=== PATIENT | female | born 1980 | race African-American/Black ===

== ENCOUNTER 2022-11-01 10:05 | Emergency (ER) | payer MEDICAID, SELFPAY ==
[2022-11-01] VITALS (21 sets, daily range): BP systolic 127–142; BP diastolic 57–86; PULSE 72–103; RESP 20; TEMP 37.2; O2SAT 95–99; BMI 33.9
--- NOTE | 2022-11-01 11:01 | CRLHL7_ITS ---
For Patients: As a result of the Century Cures Act, medical imaging exams and procedure reports are released immediately into your electronic medical record. You may view this report before your referring provider. If you have questions, please contact your health care provider. indication: Shortness of breath Comparison: None available. Technique: Single AP view chest Findings: There is hyperinflation and chronic interstitial change. There is no focal consolidation, effusion, or pneumothorax. The cardiomediastinal silhouette is within normal limits. The bony thorax is grossly intact. Impression: Mild central bronchial thickening without dense consolidation. Dictated by Ruddy Perez MD @ 11/01/2022 12:29:32 PM (Electronically Signed)
--- NOTE | 2022-11-01 11:03 | ED.GENADULT ---
HPI - General Adult General Time Seen by Provider: 11:03 Date Seen: 11/01/22 Chief complaint: Shortness of Breath/Dyspnea Stated complaint: Shortness of breath, brain fog Time Seen by Provider: 11/01/22 10:28 Source: patient Mode of arrival: ambulatory Limitations: no limitations History of Present Illness HPI narrative: Patient is a very pleasant 42-year-old black female who lives in [place], she has insulin-dependent diabetes type 2, she also has phentermine for weight loss. She works out quite regularly. Over the last year sometimes with stress she will notice some discomfort in her chest shortness of breath. She woke up with this this morning and had shortness of breath. 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 She sees Dr. Staples there is a positive family history of heart disease. She reported today that she felt short of breath a little bit of tingling in her left anterior chest and little bit of tingling in her left shoulder, no jaw or mouth pain or neck pain. No leg swelling or edema. No neurologic complaints, no headache, she does not really feel like she has a viral type illness, is also not certain if she is or not. But doubts that Related Data Home Medications Medication Instructions Recorded Confirmed phentermine 37.5 mg capsule 37.5 mg PO QDAY 05/26/22 Previous Rx's Medication Instructions Recorded phentermine 37.5 mg capsule 37.5 mg PO QDAY #30 caps 05/26/22 insulin glargine 100 unit/mL (3 14 unit (0.14 mL) subcut QPM #15 mL 08/15/22 mL) subcutaneous pen (Lantus Solostar U-100 Insulin) Allergies Allergy/AdvReac Type Severity Reaction Status Date / Time No Known Allergies Allergy Unknown Verified 11/01/22 10:19 Review of Systems Status of ROS: Reports: 10 or more systems reviewed and unremarkable except as noted in History and below [facility] Medical History History of gestational hypertension Obesity Surgical History Status post delivery Status post cholecystectomy Social History Smoking Status: Former smoker Do you use any of these nicotine containing products: None Second hand tobacco smoke exposure: No How often do you have a drink containing alcohol: 2-3 times a week How many standard drinks containing alcohol do you have on a typical day: 1 or 2 AUDIT-C Alcohol total score: 3 Non-prescribed substance use: marijuana (any form) Exam Narrative: Exam Narrative: Objective: Vital signs unremarkable, O2 sat excellent HEENT is unremarkable no facial asymmetry neck is supple chest is clear chest heart rhythm regular heart murmur there is mild palpable left chest tenderness in fact the patient notice ?where you put her stethoscope and still little tender. ? Abdomen benign soft extremities without edema Neurologic nonfocal Skin periphery warm and dry Pulses regular Const: Vital Signs, click to edit/add: Vital Signs - 24 hr 11/01/22 10:19 11/01/22 10:58 11/01/22 11:00 Temperature 98.9 F Pulse Rate 72 91 Pulse Rate [Pulse Oximeter] 81 Respiratory Rate 20 Blood Pressure Blood Pressure [Le ft Upper Arm] 141/66 H Pulse Oximetry 96 99 97 Oxygen Delivery Me thod Room Air 11/01/22 11:09 11/01/22 11:15 11/01/22 11:30 Temperature Pulse Rate 93 76 80 Pulse Rate [Pulse Oximeter] Respiratory Rate Blood Pressure 139/68 Blood Pressure [Le ft Upper Arm] Pulse Oximetry 97 99 98 Oxygen Delivery Me thod 11/01/22 11:32 11/01/22 11:49 11/01/22 12:00 Temperature Pulse Rate 80 84 75 Pulse Rate [Pulse Oximeter] Respiratory Rate Blood Pressure 136/86 Blood Pressure [Le ft Upper Arm] Pulse Oximetry 97 97 97 Oxygen Delivery Me thod 11/01/22 12:01 11/01/22 12:15 11/01/22 12:30 Temperature Pulse Rate 74 75 90 Pulse Rate [Pulse Oximeter] Respiratory Rate Blood Pressure 141/62 H Blood Pressure [Le ft Upper Arm] Pulse Oximetry 97 96 97 Oxygen Delivery Me thod 11/01/22 12:32 11/01/22 12:45 11/01/22 13:00 Temperature Pulse Rate 82 91 103 H Pulse Rate [Pulse Oximeter] Respiratory Rate Blood Pressure 127/57 L Blood Pressure [Le ft Upper Arm] Pulse Oximetry 98 96 96 Oxygen Delivery Me thod 11/01/22 13:01 11/01/22 13:02 11/01/22 13:15 Temperature Pulse Rate 92 95 96 Pulse Rate [Pulse Oximeter] Respiratory Rate Blood Pressure 142/64 H Blood Pressure [Le ft Upper Arm] Pulse Oximetry 96 96 95 Oxygen Delivery Me thod 11/01/22 13:30 11/01/22 13:32 11/01/22 13:45 Temperature Pulse Rate 99 94 87 Pulse Rate [Pulse Oximeter] Respiratory Rate Blood Pressure 135/70 Blood Pressure [Le ft Upper Arm] Pulse Oximetry 96 96 98 Oxygen Delivery Me thod Course Vital Signs Vital signs: Initial Vital Signs Temperature 98.9 F 11/01/22 10:19 Temperature Source Temporal Artery Scan 11/01/22 10:19 Pulse Rate 81 11/01/22 10:19 Pulse Rhythm 11/01/22 10:19 Respiratory Rate 20 11/01/22 10:19 Blood Pressure 141/66 H 11/01/22 10:19 Blood Pressure Mean 91 11/01/22 10:19 Blood Pressure Position Sitting 11/01/22 10:19 Pulse Oximetry 96 11/01/22 10:19 Oxygen Delivery Method 11/01/22 10:19 Vital Signs Temperature 98.9 F 11/01/22 10:19 Pulse Rate 81 11/01/22 10:19 Respiratory Rate 20 11/01/22 10:19 Blood Pressure 141/66 H 11/01/22 10:19 Pulse Oximetry 96 11/01/22 10:19 Oxygen Delivery Method 11/01/22 10:19 Temperature 98.9 F 11/01/22 10:19 Pulse Rate 87 11/01/22 13:45 Respiratory Rate 20 11/01/22 10:19 Blood Pressure 135/70 11/01/22 13:32 Pulse Oximetry 98 11/01/22 13:45 Oxygen Delivery Method 11/01/22 10:19 Medical Decision Making MDM Narrative Medical decision making narrative: The patient is a insulin-dependent diabetic who presents with some shortness of breath. May be anxiety related, but need to rule out acute coronary syndrome, PE, pneumonia, COVID/influenza/RSV. Patient will get a serial troponins, EKG, chest x-ray, D-dimer, laboratory studies. Will give her aspirin. She is not having chest pain or shortness of breath now. Her O2 sat is 96% on room air EKG by my read shows normal sinus rhythm limited R-wave progression anteriorly but no acute ST T wave changes. Disposition pending findings on labs above. she was comfortable the assessment and plan Addendum: Patient's chest x-ray by my review looks negative some bronchial thickening but no acute infiltrate. CRP is less than 0.5 initial D-dimer is negative, initial troponin is negative. White count is 7440 hemoglobin is 13.7. ER profile is unremarkable in the elevated sugar at 1:30 a.m., liver function test normal. Negative for influenza/COVID/RSV. Repeat 90 minute troponin is pending. Repeat EKG shows similar EKG findings with some artifact present. Patient has no further symptoms. At this point if her 2nd troponin is negative think we can lower to be discharged home light activity, she has appointment in [address] Staples and I would recommend discussion of whether a stress echocardiogram would be appropriate or cut a cardiology consultation. Would recommend an aspirin daily adult strength. Light activity as mention any recurrent symptoms or problems return to the ED. the patient was comfortable this will follow up as directed Lab Data Labs: Lab Results 11/01/22 11/01/22 11/01/22 Range/Units 10:28 11:20 11:20 WBC (4.50-11.00) K/uL RBC (4.00-5.20) m/uL Hgb (12.0-16.0) gm/dL Hct (33.0-51.0) % MCV (80-100) fL MCH (26-34) pg MCHC (32-36) gm/dL RDW Coeff of Kendy (11.5-15.5) % Plt Count (140-440) K/uL Neut % (Auto) (42.0-72.0) % Lymph % (Auto) (20-44) % Erath % (Auto) (0.0-11.0) % Eos % (Auto) (0.0-7.0) % Baso % (Auto) (0.0-3.0) % Neut # (Auto) (1.7-7.0) K/uL Lymph # (Auto) (0.90-2.90) K/uL Erath # (Auto) (0.00-0.90) K/UL Eos # (Auto) (0.00-0.50) K/uL Baso # (Auto) (0.00-0.30) K/uL Abs Immat Gran (auto) (0.00-0.30) K/uL Imm/Tot Granulo (auto) % Diff Slide Review (Acceptable) D-Dimer Quant (PE/DVT) < 0.27 (0.00-0.50) ug/ml Sodium 140 (135-149) mmol/L Potassium 4.2 (3.6-5.1) mmol/L Chloride 106 (96-114) mmol/L Carbon Dioxide 25 (20-32) mmol/L BUN 9 (5-24) mg/dL Creatinine 0.5 (0.5-1.5) mg/dL Estimated Creat Clear 135.81 Estimated GFR 119 ml/min Glucose 130 H (60-115) mg/dL Calcium 9.1 (8.4-10.6) mg/dL Total Bilirubin 0.8 (0.1-1.5) mg/dL Direct Bilirubin 0.1 (0.0-0.5) mg/dL AST 26 (12-35) U/L ALT 26 (4-35) U/L Alkaline Phosphatase 65 (40-150) U/L Troponin I (0.01-0.04) ng/mL C-Reactive Protein < 0.5 L (0.5-1.0) mg/dL NT-Pro-B Natriuret Pep 50 (0-125) PG/mL Total Protein 7.2 (6.0-8.3) g/dL Albumin 4.6 (3.3-5.0) g/dL HCG, Qual (Negative) SARS-CoV-2 (PCR) Negative SARS-CoV-2 (Negative) Influenza Type A (PCR) Negative PCR FLU A (Negative) Influenza Type B (PCR) Negative PCR FLU B (Negative) RSV (PCR) Negative PCR RSV (Negative) 11/01/22 11/01/22 11/01/22 Range/Units 11:20 11:20 11:35 WBC 7.44 (4.50-11.00) K/uL RBC 4.25 (4.00-5.20) m/uL Hgb 13.7 (12.0-16.0) gm/dL Hct 40.0 (33.0-51.0) % MCV 94 (80-100) fL MCH 32 (26-34) pg MCHC 34 (32-36) gm/dL RDW Coeff of Kendy 12.5 (11.5-15.5) % Plt Count 197 (140-440) K/uL Neut % (Auto) 52.5 (42.0-72.0) % Lymph % (Auto) 38.4 (20-44) % Erath % (Auto) 7.0 (0.0-11.0) % Eos % (Auto) 1.3 (0.0-7.0) % Baso % (Auto) 0.3 (0.0-3.0) % Neut # (Auto) 3.90 (1.7-7.0) K/uL Lymph # (Auto) 2.86 (0.90-2.90) K/uL Erath # (Auto) 0.50 (0.00-0.90) K/UL Eos # (Auto) 0.10 (0.00-0.50) K/uL Baso # (Auto) 0.02 (0.00-0.30) K/uL Abs Immat Gran (auto) 0.04 (0.00-0.30) K/uL Imm/Tot Granulo (auto) 0.5 % Diff Slide Review Acceptable Review (Acceptable) D-Dimer Quant (PE/DVT) (0.00-0.50) ug/ml Sodium (135-149) mmol/L Potassium (3.6-5.1) mmol/L Chloride (96-114) mmol/L Carbon Dioxide (20-32) mmol/L BUN (5-24) mg/dL Creatinine (0.5-1.5) mg/dL Estimated Creat Clear Estimated GFR ml/min Glucose (60-115) mg/dL Calcium (8.4-10.6) mg/dL Total Bilirubin (0.1-1.5) mg/dL Direct Bilirubin (0.0-0.5) mg/dL AST (12-35) U/L ALT (4-35) U/L Alkaline Phosphatase (40-150) U/L Troponin I < 0.01 L (0.01-0.04) ng/mL C-Reactive Protein (0.5-1.0) mg/dL NT-Pro-B Natriuret Pep (0-125) PG/mL Total Protein (6.0-8.3) g/dL Albumin (3.3-5.0) g/dL HCG, Qual Negative (Negative) SARS-CoV-2 (PCR) (Negative) Influenza Type A (PCR) (Negative) Influenza Type B (PCR) (Negative) RSV (PCR) (Negative) 11/01/22 Range/Units 12:58 WBC (4.50-11.00) K/uL RBC (4.00-5.20) m/uL Hgb (12.0-16.0) gm/dL Hct (33.0-51.0) % MCV (80-100) fL MCH (26-34) pg MCHC (32-36) gm/dL RDW Coeff of Kendy (11.5-15.5) % Plt Count (140-440) K/uL Neut % (Auto) (42.0-72.0) % Lymph % (Auto) (20-44) % Erath % (Auto) (0.0-11.0) % Eos % (Auto) (0.0-7.0) % Baso % (Auto) (0.0-3.0) % Neut # (Auto) (1.7-7.0) K/uL Lymph # (Auto) (0.90-2.90) K/uL Erath # (Auto) (0.00-0.90) K/UL Eos # (Auto) (0.00-0.50) K/uL Baso # (Auto) (0.00-0.30) K/uL Abs Immat Gran (auto) (0.00-0.30) K/uL Imm/Tot Granulo (auto) % Diff Slide Review (Acceptable) D-Dimer Quant (PE/DVT) (0.00-0.50) ug/ml Sodium (135-149) mmol/L Potassium (3.6-5.1) mmol/L Chloride (96-114) mmol/L Carbon Dioxide (20-32) mmol/L BUN (5-24) mg/dL Creatinine (0.5-1.5) mg/dL Estimated Creat Clear Estimated GFR ml/min Glucose (60-115) mg/dL Calcium (8.4-10.6) mg/dL Total Bilirubin (0.1-1.5) mg/dL Direct Bilirubin (0.0-0.5) mg/dL AST (12-35) U/L ALT (4-35) U/L Alkaline Phosphatase (40-150) U/L Troponin I < 0.01 L (0.01-0.04) ng/mL C-Reactive Protein (0.5-1.0) mg/dL NT-Pro-B Natriuret Pep (0-125) PG/mL Total Protein (6.0-8.3) g/dL Albumin (3.3-5.0) g/dL HCG, Qual (Negative) SARS-CoV-2 (PCR) (Negative) Influenza Type A (PCR) (Negative) Influenza Type B (PCR) (Negative) RSV (PCR) (Negative) Discharge Plan Discharge Clinical Impression: Acute chest wall pain, Shortness of breath, Stress Patient Disposition: Home w/ Parent or Adult Condition: Improved Additional Instructions: Rest, light activity, would hold her phentermine and discussed with Dr. Staples on Sunday. Follow up with Dr. Staples on Sunday. Aspirin 325 mg daily adult strength. Discussed further cardiology workup such as a stress echocardiogram on Sunday at a follow-up appointment. Stressed importance of light activity, stress reduction, aspirin daily. Patient was in agreement and will follow up as directed. Continue to monitor her sugars. If she has trouble before her appointment on Sunday can return to the ED at any time. Prescriptions: No Action phentermine 37.5 mg capsule 37.5 mg PO QDAY Rx Instructions: must administer 30 minutes before or 1-2 hours after breakfast phentermine 37.5 mg capsule 37.5 mg PO QDAY Qty: 30 2RF Rx Instructions: must administer 30 minutes before or 1-2 hours after breakfast insulin glargine [Lantus Solostar U-100 Insulin] 100 unit/mL (3 mL) insulin pen 14 unit subcut QPM Qty: 15 10RF Follow Up/Referrals: Nico Bird MD [Primary Care Provider] - Stand Alone Forms: [employer] Info Instructions
[2022-11-01] MEDS: ASPIRIN 81 MG TAB.CHEW 324 MG PO (11:07)
[2022-11-01 11:41] LABS: Basophils Absolute Auto 0.02 K/uL (0.00-0.30); Basophils Percent Auto 0.3 % (0.0-3.0); Eosinophils Percent Auto 1.3 % (0.0-7.0); Hemoglobin* 13.7 gm/dL (12.0-16.0); Immature Granulocytes Abs Auto 0.04 K/uL (0.00-0.30); Immature Granulocytes Pct Auto 0.5 %; Lymphocytes Absolute Auto 2.86 K/uL (0.90-2.90); Lymphocytes Percent Auto 38.4 % (20-44); Mean Corpuscular HGB Conc 34 gm/dL (32-36); Mean Corpuscular Hemoglobin 32 pg (26-34); Mean Corpuscular Volume 94 fL (80-100); Neutrophils Percent Auto 52.5 % (42.0-72.0); Platelet Count* 197 K/uL (140-440); RDW Coefficient of Variation % 12.5 % (11.5-15.5); Red Blood Count 4.25 m/uL (4.00-5.20); White Blood Count* 7.44 K/uL (4.50-11.00)
[2022-11-01 11:42] LABS: PCR FLU A Negative PCR FLU A (Negative); PCR FLU B Negative PCR FLU B (Negative); PCR RSV Negative PCR RSV (Negative)
[2022-11-01 11:55] LABS: Albumin* 4.6 g/dL (3.3-5.0); Chloride* 106 mmol/L (96-114)
[2022-11-01 11:56] LABS: Potassium* 4.2 mmol/L (3.6-5.1); Sodium* 140 mmol/L (135-149)
[2022-11-01 11:58] LABS: Creatinine* 0.5 mg/dL (0.5-1.5); Est. Creatinine Clearance* 135.81; Estimated Glomerular Filt Rate 119 ml/min; HCG Qualitative Serum* Negative (Negative)
[2022-11-01 11:59] LABS: Alanine Aminotransferase* 26 U/L (4-35); Alkaline Phosphatase* 65 U/L (40-150); Aspartate Amino Transferase* 26 U/L (12-35); Bilirubin Direct* 0.1 mg/dL (0.0-0.5); Bilirubin Total* 0.8 mg/dL (0.1-1.5); Blood Urea Nitrogen* 9 mg/dL (5-24); Calcium* 9.1 mg/dL (8.4-10.6); Carbon Dioxide* 25 mmol/L (20-32); Glucose* 130 mg/dL (60-115); Total Protein* 7.2 g/dL (6.0-8.3)
[2022-11-01 12:03] LABS: Slide Review Acceptable Review (Acceptable); Slide Review Reflex Yes
[2022-11-01 12:04] LABS: D Dimer Quantitative* < 0.27 ug/ml (0.00-0.50)
[2022-11-01 12:08] LABS: NT Pro B Type NatriureticPept* 50 PG/mL (0-125)
[2022-11-01 12:09] LABS: C Reactive Protein* < 0.5 mg/dL (0.5-1.0)
[2022-11-01 12:23] LABS: SARS PCR* Negative SARS-CoV-2 (Negative)
[2022-11-01 12:26] LABS: Troponin I* < 0.01 ng/mL (0.01-0.04)
[2022-11-01 13:43] LABS: Troponin I* < 0.01 ng/mL (0.01-0.04)
== END 2022-11-01 14:15 | disposition home or self-care (01) ==
PROVIDERS: Emergency Provider Family Medicine; PCP Family Medicine
DX: R07.89 Other chest pain (principal); R06.02 Shortness of breath; Z73.3 Stress, not elsewhere classified
CPT/HCPCS: 36415; 71045; 80048; 80076; 83880; 84484; 84703; 85025; 85379; 86140; 87502; 87634; 87635; 93005; 94761; 99284; 99285; A9270

== ENCOUNTER 2022-11-03 11:30 | Outpatient (CLI) | payer MEDICAID, SELFPAY ==
--- OUTSIDE RECORDS SUMMARY | 2022-11-03 11:43 | XMS_ITS | Clinical Summary ---
:1980 Author Organization [employer] [facility] [place] [address] Care Team Providers Name Role Phone Pcp, No Primary Care Provider Unavailable Allergies No known active allergies Medications Medication Sig Dispensed Refills Start Date End Date Status spironolactone Take 1 tablet by 0 11/08/2011 Active (ALDACTONE) 50 mg mouth once daily. tablet metFORMIN (GLUCOPHAGE) Take 1 tablet by 0 11/08/2011 Active 1,000 mg tablet mouth 2 times daily with meals. Cholecalciferol, Take 1 tablet by 0 11/08/2011 Active Vitamin D3, (VITAMIN D) mouth once daily. 5,000 unit Tab omega-3 fatty Take 1 capsule by 0 11/08/2011 Active acids-vitamin E (FISH mouth once daily. OIL) 1,000 mg Cap Biotin 500 mcg capsule Take 2 capsules 0 11/08/2011 Active by mouth once daily. 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 Temperature 37.6 ??C (99.6 ??F) 11/08/2011 9:58 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 Respiratory Rate - - Oxygen Saturation - - Inhaled Oxygen Concentration - - Weight 103.2 kg (227 lb 8 oz) 12/06/2011 9:53 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 Height - - Body Mass Index - - Plan of Treatment Health Maintenance Due Date Last Done Comments COVID-19 vaccine series (#1) 1980 Tdap 1990 Depression screening for age 12+ 1991 HIV for age 15-65 1994 BMI (ht and wt on same day) for age 0503/28/1997 18+ Hepatitis C screening for age 18-79 1997 Tetanus booster 1999 Influenza for age 9-49 07/27/2022 Pap test for age 21-65 01/07/2024 01/07/2021, 01/07/2021, 07/19/2015 Results Not on filefrom Last 3 Months Insurance Payer Benefit Plan / Subscriber ID Effective Dates Phone Addre ss Type Group MEDICA MEDICA CHOICE [id number] 2011-Present [address] [address] [place] [address] [place] [place] [employer] [id number] 2016-Present [address] [address] [place] [address] Nghia Logan Personal/Family Self 1980 [id number] [place] [address] [address] Teams [address] [employer] Relationship Specialty Start Date End Date Pcp, No PCP - General 11/07/11 .
[2022-11-03 17:42] LABS: Cholesterol* 238 mg/dL (90-199); Creatinine Urine 52.9 mg/dL
[2022-11-03 17:43] LABS: HDL Cholesterol* 63 mg/dL (>=50); LDL Cholesterol Calculated 149 mg/dL (<100); Triglycerides* 133 mg/dL (40-149)
[2022-11-03 17:46] LABS: Microalbumin Creatinine Ratio 50 mg/g (0-30); Microalbumin Urine 3 mg/dL
== END 2022-11-03 11:31 | disposition home or self-care (01) ==
PROVIDERS: PCP Family Medicine; Visit Provider Family Medicine
DX: E78.5 Hyperlipidemia, unspecified (principal); I10 Essential (primary) hypertension; E11.9 Type 2 diabetes mellitus without complications; E66.9 Obesity, unspecified; Z13.29 Encounter for screening for other suspected endocrine disorder
CPT/HCPCS: 80061; 82043; 82570; 84443

== ENCOUNTER 2022-11-14 13:49 | Outpatient (CLI) | payer MEDICAID, SELFPAY ==
[2022-11-14 14:49] VITALS: BP 160/80; PULSE 114; RESP 18
--- NOTE | 2022-11-14 17:05 | W.PM.STED ---
Stress Test Note Date Date Seen: 11/14/22 Date of test: 11/14/22 Providers Primary care provider: Nico Bird Stress test physician: Donovan Ibarra Stress Test Note Indication for test: Chest pain Results discussion: This pleasant lady presents here for evaluation of a chest pain, discussed the risks benefits side effects should to proceed pretest EKG shows normal sinus rhythm, with a rate of 106 and blood pressure 156 and 82, she is exercised for a total time of 5 minutes following standard stress echo protocol, she and the test is terminated because of fulfillment of protocol, she had some mild fatigue, but no chest pain, or any other anginal equivalent symptoms, there is no EKG evidence of changes suggestive of ischemia, there is no dysrhythmias Impression: Negative electrographic portion of stress echo, Follow up suggested: Follow-up with primary care suggested, patient's conditioning was felt to be moderate, await echo images, which will be read by Cardiology
== END 2022-11-14 15:00 | disposition home or self-care (01) ==
LOC: STRESS 13:50
PROVIDERS: PCP Family Medicine; Visit Provider Family Medicine
DX: R06.09 Other forms of dyspnea (principal)
CPT/HCPCS: 93016; 93325; 93351

== ENCOUNTER 2023-02-27 17:53 | Emergency (ER) | payer MEDICAID, SELFPAY ==
[2023-02-27] VITALS (16 sets, daily range): BP systolic 116–163; BP diastolic 64–96; PULSE 97–116; RESP 16–18; TEMP 36.6–36.8; O2SAT 96–99; BMI 34.4
--- NOTE | 2023-02-27 18:16 | ED_ITS ---
HPI - General Adult General Chief complaint: Chest Pain Stated complaint: chest pain, high bp, nausea Time Seen by Provider: 02/27/23 18:01 Source: patient Mode of arrival: ambulatory Limitations: no limitations History of Present Illness HPI narrative: 42-year-old female coming in today complaining of not feeling well. States that she woke up this morning with a slight pressure across her chest that she describes as a fullness, headache and malaise. She does tell me that she drink 2 glasses of wine last night. She then went and got her COVID booster followed by lunch out with family. She states that for lunch they went to her favorite restaurant where she was unable to eat because she did feel good. She denies any nausea or vomiting. No fevers or chills. No cough. SHe denies any recent travel. She is not short of breath. She denies any skin rashes. Denies being secondary to having radiation therapy in the past and being ?sterile. She denies any diarrhea or urinary symptoms. She denies anything changing her chest pressure, it is not related to activity but she feels it more when she is taking deep breaths. She generally forgets about it if she is busy. 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 Related Data Home Medications Medication Instructions Recorded Confirmed insulin syringe-needle U-100 0.3 12/18/22 02/27/23 mL 31 gauge x /16 (BD Insulin Syringe Ultra-Fine) Previous Rx's Medication Instructions Recorded insulin glargine 100 unit/mL (3 14 unit (0.14 mL) subcut QPM #15 mL 08/15/22 mL) subcutaneous pen (Lantus Solostar U-100 Insulin) metformin 750 mg tablet,extended 1,500 mg PO QDAY #180 tabs 11/03/22 release 24 hr blood-glucose meter (Blood Glucose #1 ea 11/09/22 Monitoring kit) atorvastatin 40 mg tablet 40 mg PO .Bedtime #90 tabs 01/02/23 insulin aspar prot-insulin aspart 18 unit (0.18 mL) subcut TID #15 mL 02/12/23 100 unit/mL (70-30) subcutaneous pen (Novolog Mix 70-30FlexPen U-100) pen needle, diabetic 31 gauge x #300 ea 02/22/23 3/16 (1st Tier Unifine Pentips) Allergies Allergy/AdvReac Type Severity Reaction Status Date / Time No Known Drug Allergies Allergy Verified 02/27/23 19:18 Review of Systems Status of ROS: Reports: 10 or more systems reviewed and unremarkable except as noted in History and below [facility] Medical History (Updated 02/27/23 @ 20:39 by Loraine Alvarez MD) History of gestational diabetes ?Z86.32 - Personal history of gestational diabetes (ICD-10) Obesity ?E66.9 - Obesity, unspecified (ICD-10) Type 2 diabetes mellitus ?E11.9 - Type 2 diabetes mellitus without complications (ICD-10) Surgical History Status post delivery ?Z98.891 - History of uterine scar from previous surgery (ICD-10) Status post cholecystectomy ?Z90.49 - Acquired absence of other specified parts of digestive tract (ICD- 10) Family History Family/Other Breast cancer Diabetes Heart disease Mother Diabetes High cholesterol Stroke High blood pressure Drug dependence Father Drug dependence Social History Smoking Status: Current every day smoker Do you use any of these nicotine containing products: None Second hand tobacco smoke exposure: No How often do you have a drink containing alcohol: 2-3 times a week How many standard drinks containing alcohol do you have on a typical day: 1 or 2 AUDIT-C Alcohol total score: 3 Non-prescribed substance use: marijuana (any form) Little interest or pleasure in doing things: not at all Feeling down, depressed, or hopeless: not at all service: No Exam Narrative: Exam Narrative: Overweight, well-developed patient in no acute distress. Alert and oriented. Answers questions appropriately. Mood and affect are appropriate. Thoughts are goal oriented and rational. No tangential or magical thinking noted. Patient speaks in full sentences without needing to catch her breath. HEENT: Normocephalic atraumatic. Pupils are equally round reactive to light. Extraocular muscles are intact. Conjunctivae are moist without any icterus noted. Moist mucous membranes. Posterior pharynx is normal. Neck is soft without any lymphadenopathy or thyromegaly. No masses are appreciated. Cardiovascular: Heart is tachycardic with regular rhythm S1 and S2 are present without any murmurs. Lungs: Clear to auscultation bilaterally no wheezes rhonchi or rales are appreciated. Patient takes deep breaths without any discomfort. Abdomen: Soft and nontender nondistended with normal bowel sounds. No guarding or rebound. No masses or organomegaly appreciated. Extremities: Bilateral lower extremities are without edema. Normal DP and PT pulses. Skin: Well perfused without any obvious rashes. Const: Vital Signs, click to edit/add: Vital Signs - 24 hr 02/27/23 17:58 02/27/23 18:15 02/27/23 18:25 Temperature 97.9 F Pulse Rate 106 H Pulse Rate [Right] 116 H Respiratory Rate 18 Blood Pressure Blood Pressure [Le ft Upper Arm] 163/84 H Pulse Oximetry 99 97 99 Oxygen Delivery Me thod Room Air 02/27/23 18:30 02/27/23 18:31 02/27/23 18:45 Temperature Pulse Rate 108 H 107 H 103 H Pulse Rate [Right] Respiratory Rate Blood Pressure 139/82 Blood Pressure [Le ft Upper Arm] Pulse Oximetry 99 98 97 Oxygen Delivery Me thod 02/27/23 19:00 02/27/23 19:01 02/27/23 19:45 Temperature 97.9 F Pulse Rate 108 H 110 H Pulse Rate [Right] Respiratory Rate Blood Pressure 153/64 H Blood Pressure [Le ft Upper Arm] Pulse Oximetry 97 96 Oxygen Delivery Me thod 02/27/23 19:32 02/27/23 19:50 02/27/23 20:02 Temperature Pulse Rate 103 H 107 H 113 H Pulse Rate [Right] Respiratory Rate 16 16 16 Blood Pressure 116/96 H 139/75 154/80 H Blood Pressure [Le ft Upper Arm] Pulse Oximetry 99 98 96 Oxygen Delivery Me thod Course Course Hospital Course: EKG, read by me, shows normal sinus rhythm with a pulse of 111. IV was started patient received a L of normal saline. She did received Toradol and Zofran for her headache. While she was here waiting for lab work, she stated that her chest pressure was completely gone, even with deep inspiration. Pulse did come down from the 1 teens to about 100 after a L of fluid. Labs did show elevated glucose at 2:43 a.m. with an elevated lactate. Otherwise labs were unremarkable. Troponin x2 was normal. Repeat EKG which showed a pulse of 101 without significant changes. Vital Signs Vital signs: Initial Vital Signs Temperature 97.9 F 02/27/23 17:58 Temperature Source Temporal Artery Scan 02/27/23 17:58 Pulse Rate 116 H 02/27/23 17:58 Respiratory Rate 18 02/27/23 17:58 Blood Pressure 163/84 H 02/27/23 17:58 Blood Pressure Mean 110 02/27/23 17:58 Pulse Oximetry 99 02/27/23 17:58 Oxygen Delivery Method Room Air 02/27/23 17:58 Vital Signs Temperature 97.9 F 02/27/23 17:58 Pulse Rate 116 H 02/27/23 17:58 Respiratory Rate 18 02/27/23 17:58 Blood Pressure 163/84 H 02/27/23 17:58 Pulse Oximetry 99 02/27/23 17:58 Oxygen Delivery Method Room Air 02/27/23 17:58 Temperature 97.9 F 02/27/23 19:45 Pulse Rate 113 H 02/27/23 20:02 Respiratory Rate 16 02/27/23 20:02 Blood Pressure 154/80 H 02/27/23 20:02 Pulse Oximetry 96 02/27/23 20:02 Oxygen Delivery Method Room Air 02/27/23 17:58 Medical Decision Making MDM Narrative Medical decision making narrative: 42-year-old female with generalized not feeling well today. Her symptoms inclu ding her headache and chest fullness that resolved with Toradol and IV fluids in the ED. I do not believe she is having a cardiovascular event given that she has a normal workup today after over 12 hours since her symptoms began. I wonder if there was a component of mild dehydration to her symptoms. Certainly symptoms could also be due to alcohol consumption the night before compounded by a COVID booster today. At this time patient will be discharged home. I do recommend she follow up with her primary care provider. I certainly would like for her to return to the ED if she develops increasing chest pressure. Patient was agreeable with everything we discussed and had no other questions. Lab Data Lab results reviewed: Yes I reviewed the patient's lab results Labs: Lab Results 02/27/23 02/27/23 02/27/23 Range/Units 18:15 18:30 18:43 WBC 7.40 (4.50-11.00) K/uL RBC 4.95 (4.00-5.20) m/uL Hgb 15.6 (12.0-16.0) gm/dL Hct 46.2 (33.0-51.0) % MCV 93 (80-100) fL MCH 32 (26-34) pg MCHC 34 (32-36) gm/dL RDW Coeff of Kendy 12.4 (11.5-15.5) % Plt Count 210 (140-440) K/uL Neut % (Auto) 82.8 H (42.0-72.0) % Lymph % (Auto) 10.7 L (20-44) % Burt % (Auto) 5.3 (0.0-11.0) % Eos % (Auto) 0.4 (0.0-7.0) % Baso % (Auto) 0.1 (0.0-3.0) % Neut # (Auto) 6.10 (1.7-7.0) K/uL Lymph # (Auto) 0.80 L (0.90-2.90) K/uL Burt # (Auto) 0.40 (0.00-0.90) K/UL Eos # (Auto) 0.03 (0.00-0.50) K/uL Baso # (Auto) 0.01 (0.00-0.30) K/uL ESR 4 (2-20) mm/hr D-Dimer Quant (PE/DVT) < 0.27 (0.00-0.50) ug/ml Sodium 133 L (135-149) mmol/L Potassium 4.2 (3.6-5.1) mmol/L Chloride 103 (96-114) mmol/L Carbon Dioxide 21 (20-32) mmol/L BUN 15 (5-24) mg/dL Creatinine 0.5 (0.5-1.5) mg/dL Estimated Creat Clear 135.81 Estimated GFR 119 ml/min Glucose 243 H (60-115) mg/dL Lactate 2.4 H (0.5-1.9) mmol/L Calcium 8.6 (8.4-10.6) mg/dL Total Bilirubin 1.3 (0.1-1.5) mg/dL Direct Bilirubin 0.2 (0.0-0.5) mg/dL AST 26 (12-35) U/L ALT 29 (4-35) U/L Alkaline Phosphatase 76 (40-150) U/L Troponin I < 0.01 L (0.01-0.04) ng/mL C-Reactive Protein 0.8 (0.5-1.0) mg/dL Total Protein 7.6 (6.0-8.3) g/dL Albumin 4.7 (3.3-5.0) g/dL Lipase 38 (23-300) U/L HCG, Qual Negative (Negative) Urine Color Yellow (Yellow) Urine Appearance Clear (Clear) Urine pH 5.5 (5.0-8.5) Ur Specific [place] 1.025 (1.000-1.030) Urine Protein 1+ A (Negative) Urine Glucose (UA) 1+ A (Negative) Urine Ketones 1+ A (Negative) Urine Blood Negative (Negative) Urine Nitrite Negative (Negative) Urine Bilirubin Negative (Negative) Urine Urobilinogen 0.2 (0.2-1.0) Ur Leukocyte Esterase Negative (Negative) Urine RBC 0-2 (0-2) Urine WBC 0-2 (0-5) Ur Squamous Epith Cells Few (None-Few) Urine Bacteria None (None) SARS-CoV-2 (PCR) Negative SARS-CoV-2 (Negative) Influenza Type A (PCR) Negative PCR FLU A (Negative) Influenza Type B (PCR) Negative PCR FLU B (Negative) POC Troponin I (0.01-0.04) ng/ml 02/27/23 Range/Units 20:44 WBC (4.50-11.00) K/uL RBC (4.00-5.20) m/uL Hgb (12.0-16.0) gm/dL Hct (33.0-51.0) % MCV (80-100) fL MCH (26-34) pg MCHC (32-36) gm/dL RDW Coeff of Kendy (11.5-15.5) % Plt Count (140-440) K/uL Neut % (Auto) (42.0-72.0) % Lymph % (Auto) (20-44) % Burt % (Auto) (0.0-11.0) % Eos % (Auto) (0.0-7.0) % Baso % (Auto) (0.0-3.0) % Neut # (Auto) (1.7-7.0) K/uL Lymph # (Auto) (0.90-2.90) K/uL Burt # (Auto) (0.00-0.90) K/UL Eos # (Auto) (0.00-0.50) K/uL Baso # (Auto) (0.00-0.30) K/uL ESR (2-20) mm/hr D-Dimer Quant (PE/DVT) (0.00-0.50) ug/ml Sodium (135-149) mmol/L Potassium (3.6-5.1) mmol/L Chloride (96-114) mmol/L Carbon Dioxide (20-32) mmol/L BUN (5-24) mg/dL Creatinine (0.5-1.5) mg/dL Estimated Creat Clear Estimated GFR ml/min Glucose (60-115) mg/dL Lactate (0.5-1.9) mmol/L Calcium (8.4-10.6) mg/dL Total Bilirubin (0.1-1.5) mg/dL Direct Bilirubin (0.0-0.5) mg/dL AST (12-35) U/L ALT (4-35) U/L Alkaline Phosphatase (40-150) U/L Troponin I (0.01-0.04) ng/mL C-Reactive Protein (0.5-1.0) mg/dL Total Protein (6.0-8.3) g/dL Albumin (3.3-5.0) g/dL Lipase (23-300) U/L HCG, Qual (Negative) Urine Color (Yellow) Urine Appearance (Clear) Urine pH (5.0-8.5) Ur Specific [place] (1.000-1.030) Urine Protein (Negative) Urine Glucose (UA) (Negative) Urine Ketones (Negative) Urine Blood (Negative) Urine Nitrite (Negative) Urine Bilirubin (Negative) Urine Urobilinogen (0.2-1.0) Ur Leukocyte Esterase (Negative) Urine RBC (0-2) Urine WBC (0-5) Ur Squamous Epith Cells (None-Few) Urine Bacteria (None) SARS-CoV-2 (PCR) (Negative) Influenza Type A (PCR) (Negative) Influenza Type B (PCR) (Negative) POC Troponin I 0.00 L (0.01-0.04) ng/ml Imaging Data Chest x-ray: Attestation: I have reviewed the pertinent imaging results. Radiologist's impression: PA and lateral views of the chest Findings: There is mild hyperinflation. There is no focal consolidation, effusion, or pneumothorax. The cardiomediastinal silhouette is within normal limits. The bony thorax is grossly intact. Impression: No acute cardiopulmonary abnormality. ECG Data Attestation: I personally reviewed and interpreted this ECG as follows: Discharge Plan Discharge Clinical Impression: Headache, Chest fullness Patient Disposition: Home, Self-Care Condition: Improved Additional Instructions: Return to the emergency department if you develop worsening chest pressure. Recommend you follow-up with your primary care provider this week to discuss your symptoms and further management as needed. Recommend resting and getting a full night's sleep tonight. You may developed a slight fever and general achiness from your COVID booster today, okay to take Tylenol as needed. Prescriptions: No Action metformin 750 mg tablet extended release 24 hr 1,500 mg PO QDAY Qty: 180 1RF insulin glargine [Lantus Solostar U-100 Insulin] 100 unit/mL (3 mL) insulin pen 14 unit subcut QPM Qty: 15 10RF (DME) blood-glucose meter [Blood Glucose Monitoring] Kit See Rx Instructions .Route Qty: 1 0RF Rx Instructions: TID (DME) insulin syringe-needle U-100 [BD Insulin Syringe Ultra-Fine] 0.3 mL 31 gauge x 5/16 syringe See Rx Instructions .Route Rx Instructions: As directed atorvastatin 40 mg tablet 40 mg PO .Bedtime Qty: 90 3RF insulin asp prt-insulin aspart [Novolog Mix 70-30FlexPen U-100] 100 unit/mL (70-30) insulin pen 18 unit subcut TID Qty: 15 6RF (DME) pen needle, diabetic [1st Tier Unifine Pentips] 31 gauge x 3/16 needle See Rx Instructions .Route Qty: 300 5RF Rx Instructions: Test 4 times daily Follow Up/Referrals: Nico Bird MD [Primary Care Provider] - Stand Alone Forms: [facility] Info Instructions
[2023-02-27] MEDS: 0.9 % SODIUM CHLORIDE 1000 ml 1,000 ML IV (18:45)
[2023-02-27 18:53] LABS: Lactate* 2.4 mmol/L (0.5-1.9)
[2023-02-27] MEDS: KETOROLAC 30 MG/ML inj IVP (18:54)
[2023-02-27] MEDS: ONDANSETRON 2 MG/ML inj 4 MG IVP (18:56)
[2023-02-27 18:57] LABS: Basophils Absolute Auto 0.01 K/uL (0.00-0.30); Basophils Percent Auto 0.1 % (0.0-3.0); Eosinophils Absolute Auto 0.03 K/uL (0.00-0.50); Eosinophils Percent Auto 0.4 % (0.0-7.0); Hematocrit 46.2 % (33.0-51.0); Hemoglobin* 15.6 gm/dL (12.0-16.0); Immature Granulocytes Abs Auto 0.05 K/uL (0.00-0.30); Immature Granulocytes Pct Auto 0.7 %; Lymphocytes Percent Auto 10.7 % (20-44); Mean Corpuscular HGB Conc 34 gm/dL (32-36); Mean Corpuscular Hemoglobin 32 pg (26-34); Mean Corpuscular Volume 93 fL (80-100); Monocytes Percent Auto 5.3 % (0.0-11.0); Neutrophils Percent Auto 82.8 % (42.0-72.0); Platelet Count* 210 K/uL (140-440); RDW Coefficient of Variation % 12.4 % (11.5-15.5); Red Blood Count 4.95 m/uL (4.00-5.20)
[2023-02-27 19:03] LABS: Slide Review Reflex No
[2023-02-27 19:15] LABS: Albumin* 4.7 g/dL (3.3-5.0); Chloride* 103 mmol/L (96-114); Sodium* 133 mmol/L (135-149)
[2023-02-27 19:16] LABS: Potassium* 4.2 mmol/L (3.6-5.1)
[2023-02-27 19:17] LABS: Creatinine* 0.5 mg/dL (0.5-1.5); Est. Creatinine Clearance* 135.81; Estimated Glomerular Filt Rate 119 ml/min
[2023-02-27 19:18] LABS: Alkaline Phosphatase* 76 U/L (40-150); Aspartate Amino Transferase* 26 U/L (12-35); Bilirubin Direct* 0.2 mg/dL (0.0-0.5); Bilirubin Total* 1.3 mg/dL (0.1-1.5); Blood Urea Nitrogen* 15 mg/dL (5-24); Carbon Dioxide* 21 mmol/L (20-32); Glucose* 243 mg/dL (60-115); Lipase* 38 U/L (23-300); Total Protein* 7.6 g/dL (6.0-8.3)
[2023-02-27 19:19] LABS: Alanine Aminotransferase* 29 U/L (4-35); Calcium* 8.6 mg/dL (8.4-10.6)
[2023-02-27 19:21] LABS: C Reactive Protein* 0.8 mg/dL (0.5-1.0); D Dimer Quantitative* < 0.27 ug/ml (0.00-0.50)
--- NOTE | 2023-02-27 19:32 | CRLHL7_ITS ---
For Patients: As a result of the Century Cures Act, medical imaging exams and procedure reports are released immediately into your electronic medical record. You may view this report before your referring provider. If you have questions, please contact your health care provider. Indication: Shortness of breath Comparison: Single view chest November 01, 2022 Technique: PA and lateral views of the chest Findings: There is mild hyperinflation. There is no focal consolidation, effusion, or pneumothorax. The cardiomediastinal silhouette is within normal limits. The bony thorax is grossly intact. Impression: No acute cardiopulmonary abnormality. Dictated by Ruddy Perez MD @ 02/27/2023 8:09:03 PM (Electronically Signed)
[2023-02-27 19:34] LABS: PCR FLU A Negative PCR FLU A (Negative); PCR FLU B Negative PCR FLU B (Negative)
[2023-02-27 19:36] LABS: Troponin I* < 0.01 ng/mL (0.01-0.04)
[2023-02-27 19:53] LABS: Erythrocyte SedimentationRate* 4 mm/hr (2-20)
[2023-02-27 19:58] LABS: SARS PCR* Negative SARS-CoV-2 (Negative)
[2023-02-27 20:17] LABS: Appearance Urine Clear (Clear); Bilirubin Urine Negative (Negative); Blood Urine Negative (Negative); Color Urine Yellow (Yellow); Glucose Urine 1+ (Negative); Ketones Urine 1+ (Negative); Leukocyte Esterase Urine Negative (Negative); Nitrite Urine Negative (Negative); Protein Urine 1+ (Negative); Specific Gravity Urine 1.025 (1.000-1.030); Urobilinogen Urine 0.2 (0.2-1.0); pH Urine 5.5 (5.0-8.5)
[2023-02-27 20:18] LABS: HCG Qualitative* Negative (Negative)
[2023-02-27 20:25] LABS: RBC Urine 0-2 (0-2); Squamous Epithelial Cell Urine Few (None-Few); WBC Urine 0-2 (0-5)
== END 2023-02-27 21:22 | disposition home or self-care (01) ==
PROVIDERS: Emergency Provider Family Medicine; PCP Family Medicine
DX: R51.9 Headache, unspecified (principal); R07.89 Other chest pain
CPT/HCPCS: 36415; 71046; 80048; 80076; 81001; 83605; 83690; 84484; 84703; 85025; 85379; 85651; 86140; 87086; 87631; 93005; 94761; 96374; 96375; 99284; 99285; J1885; J2405; J7030

== ENCOUNTER 2023-05-25 10:45 | Outpatient (CLI) | payer MEDICAID, SELFPAY | END 2023-05-25 10:46 | disposition home or self-care (01) | PROVIDERS: PCP Family Medicine; Visit Provider Orthopaedic Surgery | DX: E78.5 Hyperlipidemia, unspecified (principal) | CPT/HCPCS: 80061 ==

== ENCOUNTER 2024-07-14 11:19 | Outpatient (CLI) | payer MEDICAID, SELFPAY ==
--- OUTSIDE RECORDS SUMMARY | 2024-07-15 08:32 | XMS_ITS | Clinical Summary ---
Author Organization [employer] [facility] Address [place], [place] [address] Care Team Providers Care Sister Superior Name Role Phone Pcp, No Primary Care Provider Unavailabl e Allergies No known active allergies Medications Medication Sig Dispensed Refills Start Date End Date Status spironolactone (ALDACTONE) 50 mg tablet Take 1 tablet by mouth once daily. 0 11/08/2011 Active metFORMIN (GLUCOPHAGE) 1,000 mg tablet Take 1 tablet by mouth 2 times daily with meals. 0 11/08/2011 Active Cholecalciferol, Vitamin D3, (VITAMIN D) 5,000 unit Tab Take 1 tablet by mouth once daily. 0 11/08/2011 Active omega-3 fatty acids-vitamin E (FISH OIL) 1,000 mg Cap Take 1 capsule by mouth once daily. 0 11/08/2011 Active Biotin 500 mcg capsule Take 2 capsules by mouth once daily. 0 11/08/2011 Active Social History Tobacco Use Types Packs/Day Years Used Date Smoking Tobacco: Every Day Cigarettes Smokeless Tobacco: Never Tobacco Cessation:Ready to Q uit: No; Counseling Given: No Alcohol Use Standard Drinks/Week Comments Not Asked 0 (1 standard drink = 0.6 oz pur e alcohol) Sex and Gender Information Value Date Recorded Sex Assigned at Not on file Gender Identity Not on file Sexual Orientation Not on file Obstetrics History Last Filed Vital Signs Vital Sign Reading Time Taken Comments Blood Pressure 137/84 12/06/2011 9:54 AM PROJECT MANAGEMENT INSTRUCTOR Pulse 84 12/06/2011 9:54 AM PROJECT MANAGEMENT INSTRUCTOR Temperature 37.6 ??C (99.6 ??F) 11/08/2011 9:58 AM CS T Respiratory Rate - - Oxygen Saturation - - Inhaled Oxygen Concentration - - Weight 103.2 kg (227 lb 8 oz) 12/06/2011 9:53 AM PROJECT MANAGEMENT INSTRUCTOR Height - - Body Mass Index - - Plan of Treatment Health Maintenance Due Date Last Done Comments Tdap 1990 Depression screening for age 12+ 1991 HIV for age 15-65 1994 BMI (ht and wt on same day) for age 18+ 1997 Hepatitis C screening for ag e 18-79 1997 Tetanus booster 1999 COVID-19 vaccine series (2022- season) 2023 02/14/2022, 04/15/2021, 03/18/2021 Pap test for age 21-65 01/07/2024 , 01/07/2021, 07/19/2015 Colonoscopy through age 75 2024 Lipids for age 45-75 2024 Mammogram for age 45-75 2024 Influenza for age 9-49 07/27/2024 Pneumococcal series for age 6-64 Aged Out No longer eligible b ased on patient's age to complete this topic Procedures Procedure Name Priority Date/Time Associated Diagnosis Comments PROGRAM PROJECT ANALYST THIN PREP PAP SCREEN IMAGED Routine 01/07/2021 2:20 PM PROJECT MANAGEMENT INSTRUCTOR from Last 3 Months or Most Recently Relevant to Health Maintenance Results * PROGRAM PROJECT ANALYST THIN PREP PAP SCREEN IMAGED (01/07/2021 2:20 PM PROJECT MANAGEMENT INSTRUCTOR) Case Report Gynecologic Cytology Report ? Case: [id number] ? Authorizing Provider: ??Mary De León MD ?Collected: ? 01/07/2021 1420 ? Ordering Location: ? [facility] ?Received: ?01/10/2021 1712 ? First Screen: ?Saadia Mcintosh ? Specimen: ?PROGRAM PROJECT ANALYST ThinPrep Vial Screening, Cervical/Vaginal ? 01/18/2021 1:53 PM [facility] INTERPRETATION/ RESULT NEGATIVE FOR INTRAEPITHELIAL LESION OR MALIGNANCY (NIL) (none) 01/18/2021 1:53 PM [facility] IMEN ADEQUACY Satisfactory for evaluation Endocervical component present 01/18/2021 1:53 PM [facility] HPV REQUEST HPV and PAP 01/18/2021 1:53 PM PROJECT MANAGEMENT INSTRUCTOR [facility] Date of LMP 12/27/2020 01/18/2021 1:53 PM [facility] Last Pap Date 07/19/2015 01/18/2021 1:53 PM [facility] Last Pap Result NIL 1:53 PM [facility] Additional Information 01/18/2021 1:53 PM [facility] Comment: Interpreted at [facility] - [address], [place] [address] Automated Review Successful 01/18/2021 1:53 PM [facility] Comment:Specimen processed s uccessfully by automated electric meter setter device, ThinPrep Imaging System, [employer] ANCILLARY TESTING PROGRAM PROJECT ANALYST HPV Ordered, Please see separate report 01/18/2021 1:53 PM PROJECT MANAGEMENT INSTRUCTOR [facility] Note The pap test is a screening technique, not a diagnostic procedure. It is used primarily to screen for squamous cancers and precursor lesions. Published studies have shown that it is subject to both false negative and false positive results. The pap test should not be used as the sole means to diagnose or exclude pre-malignant and malignant lesions. 01/18/2021 1:53 PM PROJECT MANAGEMENT INSTRUCTOR [facility] [employer] [facility] Other (Cervical/Vagina l) 01/07/2021 2:20 PM PROJECT MANAGEMENT INSTRUCTOR 01/10/2021 5:12 PM PROJECT MANAGEMENT INSTRUCTOR Mary De León MD PATHOLOGY/CYTOLOGY [facility] [employer] [facility] [address] [place] [address], from Last 3 Months or Most Recently Relevant to Health Maintenance Care Teams Sister Superior Relationship Specialty Start Date End Date Pcp, No . PCP - General 11/07/11
== END 2024-07-14 11:20 | disposition home or self-care (01) ==
LOC: NFLDREF 07-15 08:28
PROVIDERS: PCP Family Medicine; Referring Provider Family Medicine; Visit Provider Family Medicine
DX: E78.5 Hyperlipidemia, unspecified (principal); I10 Essential (primary) hypertension; E13.9 Other specified diabetes mellitus without complications
CPT/HCPCS: 80048; 80061

== ENCOUNTER 2024-08-22 13:05 | Outpatient (CLI) | payer MEDICAID, SELFPAY ==
--- NOTE | 2024-08-22 13:00 | CRLHL7_ITS ---
For Patients: As a result of the Century Cures Act, medical imaging exams and procedure reports are released immediately into your electronic medical record. You may view this report before your referring provider. If you have questions, please contact your health care provider. BILATERAL SCREENING MAMMOGRAM WITH COMPUTER-AIDED DETECTION AND TOMOSYNTHESIS TECHNIQUE: CC and MLO views were obtained. These mammographic images have been obtained using full-field digital technique. These mammographic images were interpreted with the benefit of computer-aided detection. Breast Tomosynthesis was used in this interpretation. COMPARISON FILM: Baseline. FINDINGS: There are scattered areas of fibroglandular density. IMPRESSION: There is no radiographic evidence for malignancy. ASSESSMENT: BI-RADS Category 1: Negative RECOMMENDATION: Routine screening mammogram in 1 year. A lay language report of this examination will be provided to the patient. Bennie Peck M.D. Diagnostic Radiologist [email or web address] SP/Dictated by: Bennie Peck MD @ 08/25/2024 11:16:00 AM (Electronically Signed)
--- OUTSIDE RECORDS SUMMARY | 2024-08-22 13:08 | XMS_ITS | Clinical Summary ---
Author Organization [employer] [facility] Address [place], [place] [address] Care Team Providers Care Quill Machine Operator Name Role Phone Pcp, No Primary Care [...] Comments Blood Pressure 137/84 12/06/2011 9:54 AM INSURANCE POLICY ISSUE CLERK Pulse 84 12/06/2011 9:54 AM INSURANCE POLICY ISSUE CLERK Temperature 37.6 ??C (99.6 ??F) 11/08/2011 9:58 AM CS T Respiratory Rate - - Oxygen Saturation - - Inhaled Oxygen Concentration - - Weight 103.2 kg (227 lb 8 oz) 12/06/2011 9:53 AM INSURANCE POLICY ISSUE CLERK Height - - Body Mass Index - - Plan of Treatment Health Maintenance Due Date Last Done Comments Tdap 1990 Depression screening for age 12+ 1991 HIV for age 15-65 1994 BMI (ht and wt on same day) for age 18+ 1997 Hepatitis C screening for ag e 18-79 1997 Tetanus booster 1999 Pap test for age 21-65 01/07/2024 , 01/07/2021, 07/19/2015 Colonoscopy through age 75 2024 Lipids for age 45-75 2024 Mammogram for age 45-75 2024 COVID-19 vaccine series (2023- season) 2024 02/14/2022, 04/15/2021, 03/18/2021 Influenza for age 9-49 07/27/2024 Pneumococcal series for age 6-64 Aged Out No longer eligible b ased on patient's age to complete this topic Procedures Procedure Name Priority Date/Time Associated Diagnosis Comments ORCHESTRA MUSICIAN THIN PREP PAP SCREEN IMAGED Routine 01/07/2021 2:20 PM INSURANCE POLICY ISSUE CLERK from Last 3 Months or Most Recently Relevant to Health Maintenance Results * ORCHESTRA MUSICIAN THIN PREP PAP SCREEN IMAGED (01/07/2021 2:20 PM INSURANCE POLICY ISSUE CLERK) Case Report Gynecologic Cytology Report ? Case: [id number] ? Authorizing Provider: ??Mary De León MD ?Collected: ? 01/07/2021 1420 ? Ordering Location: ? [facility] ?Received: ?01/10/2021 1712 ? First Screen: ?Saadia Mcintosh ? Specimen: ?ORCHESTRA MUSICIAN ThinPrep Vial Screening, Cervical/Vaginal ? 01/18/2021 1:53 PM [facility] INTERPRETATION/ RESULT NEGATIVE FOR INTRAEPITHELIAL LESION OR MALIGNANCY (NIL) (none) 01/18/2021 1:53 PM [facility] IMEN ADEQUACY Satisfactory for evaluation Endocervical component present 01/18/2021 1:53 PM INSURANCE POLICY ISSUE CLERK [facility] HPV REQUEST HPV and PAP 01/18/2021 1:53 PM INSURANCE POLICY ISSUE CLERK [facility] Date of LMP 12/27/2020 01/18/2021 1:53 PM [facility] Last Pap Date 07/19/2015 01/18/2021 1:53 PM [facility] Last Pap Result NIL 1:53 PM [facility] Additional Information 01/18/2021 1:53 PM [facility] Comment: Interpreted at [facility] Central Laboratory - [address], [place] [address] Automated Review Successful 01/18/2021 1:53 PM [facility] Comment:Specimen processed s uccessfully by automated claim examiner device, ThinPrep Imaging System, [employer] ANCILLARY TESTING ORCHESTRA MUSICIAN HPV Ordered, Please see separate report 01/18/2021 1:53 PM INSURANCE POLICY ISSUE CLERK [facility] Note The [...] pre-malignant and malignant lesions. 01/18/2021 1:53 PM INSURANCE POLICY ISSUE CL[facility] Other (Cervical/Vagina l) 01/07/2021 2:20 PM INSURANCE POLICY ISSUE CLERK 01/10/2021 5:12 PM INSURANCE POLICY ISSUE CLERK Mary De León MD PATHOLOGY/CYTOLOGY [facility] [employer] [facility] [address] [place] [address], from Last 3 Months or Most Recently Relevant to Health Maintenance Care Teams Quill Machine Operator Relationship Specialty Start Date End Date Pcp, No . PCP - General 11/07/11
== END 2024-08-22 13:06 | disposition home or self-care (01) ==
LOC: MAMMO 13:05
PROVIDERS: PCP Family Medicine; Visit Provider Registered Nurse
DX: Z12.31 Encounter for screening mammogram for malignant neoplasm of breast (principal)
CPT/HCPCS: 77063; 77067

== ENCOUNTER 2025-01-21 11:18 | Outpatient (CLI) | payer MEDICAID, SELFPAY | END 2025-01-21 11:19 | disposition home or self-care (01) | LOC: LKVREF 11:22 | PROVIDERS: PCP Family Medicine; Visit Provider Family Medicine | DX: E78.2 Mixed hyperlipidemia (principal) | CPT/HCPCS: 80061 ==

== ENCOUNTER 2025-04-27 10:59 | Outpatient (CLI) | payer MEDICAID, SELFPAY ==
--- NOTE | 2025-04-27 11:53 | P.ANES_ITS ---
Anesthesia Charges Start Date/Time Anesthesia Start Date: 04/27/25 Anesthesia Start Time: 11:45 Stop Date/Time Anesthesia Stop Date: 04/27/25 Anesthesia Stop Time: 12:09 Coding CPT Codes CPT Codes: SE LWR INTST SCR COLSC - 17449 ([id number]) QK - CROSSING SUPERVISOR 2-4 CNCRNT SE PROC, QX - HUMAN RESOURCES PARTNER SVC W/ MD MED DIRECTION, P2 - PATIENT W/MILD SYST DISEASE
--- NOTE | 2025-04-27 11:53 | W.ANESCHARGE ---
Anesthesia Charges Start Date/Time Anesthesia Start Date: 04/27/25 Anesthesia Start Time: 11:45 Stop Date/Time Anesthesia Stop Date: 04/27/25 Anesthesia Stop Time: 12:09 Coding CPT Codes CPT Codes: SE LWR INTST SCR COLSC - 83515 ([id number]) QK - CASE SEALER 2-4 CNCRNT SE PROC, QX - MANAGER SUPPLY SVC W/ MD MED DIRECTION, P2 - PATIENT W/MILD SYST DISEASE
--- NOTE | 2025-04-27 12:10 | P.ANES_ITS ---
Anesthesia Charges Start Date/Time Anesthesia Start Date: 04/27/25 Anesthesia Start Time: 11:45 Stop Date/Time Anesthesia Stop Date: 04/27/25 Anesthesia Stop Time: 12:09 Coding CPT Codes CPT Codes: SE LWR INTST SCR COLSC - 62741 ([id number]) P2 - PATIENT W/MILD SYST DISEASE, QK - COMPUTER REPAIR TECHNICIAN 2-4 CNCRNT ANES PROC, QX - ASSORTMENT PLANNER SVC W/ MD MED DIRECTION
--- NOTE | 2025-04-27 12:10 | W.ANESCHARGE ---
Anesthesia Charges Start Date/Time Anesthesia Start Date: 04/27/25 Anesthesia Start Time: 11:45 Stop Date/Time Anesthesia Stop Date: 04/27/25 Anesthesia Stop Time: 12:09 Coding CPT Codes CPT Codes: SE LWR INTST SCR COLSC - 76298 ([id number]) P2 - PATIENT W/MILD SYST DISEASE, QK - UPS DRIVER 2-4 CNCRNT ANES PROC, QX - SPECIAL MAKEUP FX ARTIST INSTRUCTOR SVC W/ MD MED DIRECTION
== END 2025-04-27 11:00 | disposition home or self-care (01) ==
PROVIDERS: PCP Family Medicine; Visit Provider Surgery
DX: Z12.11 Encounter for screening for malignant neoplasm of colon (principal)
CPT/HCPCS: 00812; 45378; J2704

== ENCOUNTER 2025-09-07 11:30 | Outpatient (CLI) | payer MEDICAID, SELFPAY | END 2025-09-07 11:31 | disposition home or self-care (01) | PROVIDERS: PCP Family Medicine; Visit Provider Family Medicine | DX: E78.2 Mixed hyperlipidemia (principal); E11.9 Type 2 diabetes mellitus without complications; Z79.4 Long term (current) use of insulin | CPT/HCPCS: 80048; 80061 ==